=== PATIENT | male | born 1955 | race Caucasian/White ===

== ENCOUNTER 2017-11-14 18:18 | Observation (INO) | payer OTHER ==
[~2017-11-14] VITALS: Ht 177.8 cm; Wt 103.9 kg
[~2017-11-14 18:18] MED LIST: AMLO5; AMLO5 PO; ATOR20 PO; BENZ100A PO; BUPR150ER; Budeprion Xl300 MG PO; COQ1050 MG PO; Cyclobenzaprine5 MG PO; DOXA4; FAMO20 PO; IBUP800; LISI20 PO; LOSARTAN POTASS50 MG PO; MELO7.5 PO; Mobic15 MG PO; NUVIGIL250 MG PO; OMEP20ER; OMEPRAZOLE MAGN20 MG; OMEPRAZOLE MAGN20 MG PO; PANT40; Pepcid20 MG PO; Prevacid Soluta30 MG PO; SILDENAFIL20 MG PO; TADA10TA PO
[2017-11-14 19:14] LABS: BASOPHILS ABSOLUTE AUTO 0.03 K/mm3 (0.00-0.23); BASOPHILS PERCENT AUTO 0 % (0-2); EOSINOPHILS ABSOLUTE AUTO 0.24 K/mm3 (0.00-0.68); EOSINOPHILS PERCENT AUTO 3 % (0-6); Hematocrit 41.6 % (37.0-53.0); Hemoglobin 13.8 g/dL (13.5-17.5); IMMATURE GRAN ABSOLUTE AUTO 0.03 K/mm3 (0.00-0.10); IMMATURE GRAN PERCENT AUTO 0 % (0-1); LYMPHOCYTES ABSOLUTE AUTO 4.03 K/mm3 (0.84-5.20); LYMPHOCYTES PERCENT AUTO 44 % (21-46); MONOCYTES ABSOLUTE AUTO 0.76 K/mm3 (0.16-1.47); MONOCYTES PERCENT AUTO 8 % (4-13); Mean Corpuscular HGB 30.8 pg (26.0-34.0); Mean Corpuscular HGB Conc 33.2 g/dL (31.5-36.5); Mean Corpuscular Volume 93 fL (80-100); Mean Platelet Volume 9.5 fL (9.1-12.4); NEUTROPHILS ABSOLUTE AUTO 4.02 K/mm3 (1.96-9.15); NEUTROPHILS PERCENT AUTO 44 % (41-73); Platelet Count 319 K/mm3 (150-400); RDW Coefficient Variation 12.3 % (11.7-14.2); RDW Standard Deviation 41.9 fL (35.1-46.3); Red Blood Cell Count 4.48 M/mm3 (4.30-5.90); White Blood Cell Count 9.11 K/mm3 (4.00-11.30)
[2017-11-14 19:30] LABS: Alanine Aminotransfer (ALT/SGP 43 U/L (12-78); Albumin, Blood 3.9 g/dL (3.4-5.0); Albumin/Globulin Ratio 1.3 (0.8-1.8); Alk Phos 81 U/L (50-136); Anion Gap 10 mmol/L (6-16); Aspartate Aminotrans (AST/SGOT 34 U/L (12-37); Bilirubin, Total 0.3 mg/dL (0.1-1.0); Blood Urea Nitrogen 16 mg/dL (8-24); Bun/Creatinine Ratio 14.5 (12.0-20.0); CO2, Blood 25 mmol/L (21-32); Calcium, Blood 8.5 mg/dL (8.5-10.1); Chloride, Blood 103 mmol/L (98-108); Globulin, Blood 3.1 g/dL (2.2-4.0); Glomerular Filtration Rate >60 (60-); Glucose, Blood 88 mg/dL (70-99); Potassium, Blood 3.4 mmol/L (3.5-5.5); Sodium, Blood 138 mmol/L (136-145); Troponin I <0.015 ng/mL (0.000-0.040)
[2017-11-14] MEDS ORDERED: UBID10 PO (22:06)
[2017-11-14] MEDS ORDERED: FAMO20 PO (22:06)
[2017-11-14] MEDS ORDERED: VOL-CARE RX TA1 EACH PO (22:07)
[2017-11-15 04:42] LABS: BASOPHILS ABSOLUTE AUTO 0.03 K/mm3 (0.00-0.23); BASOPHILS PERCENT AUTO 0 % (0-2); EOSINOPHILS ABSOLUTE AUTO 0.32 K/mm3 (0.00-0.68); EOSINOPHILS PERCENT AUTO 4 % (0-6); Hematocrit 40.6 % (37.0-53.0); Hemoglobin 13.7 g/dL (13.5-17.5); IMMATURE GRAN ABSOLUTE AUTO 0.05 K/mm3 (0.00-0.10); IMMATURE GRAN PERCENT AUTO 1 % (0-1); LYMPHOCYTES ABSOLUTE AUTO 3.48 K/mm3 (0.84-5.20); LYMPHOCYTES PERCENT AUTO 42 % (21-46); MONOCYTES ABSOLUTE AUTO 0.89 K/mm3 (0.16-1.47); MONOCYTES PERCENT AUTO 11 % (4-13); Mean Corpuscular HGB 31.4 pg (26.0-34.0); Mean Corpuscular HGB Conc 33.7 g/dL (31.5-36.5); Mean Corpuscular Volume 93 fL (80-100); Mean Platelet Volume 9.8 fL (9.1-12.4); NEUTROPHILS ABSOLUTE AUTO 3.44 K/mm3 (1.96-9.15); NEUTROPHILS PERCENT AUTO 42 % (41-73); Platelet Count 281 K/mm3 (150-400); RDW Coefficient Variation 12.4 % (11.7-14.2); RDW Standard Deviation 42.5 fL (35.1-46.3); Red Blood Cell Count 4.37 M/mm3 (4.30-5.90); White Blood Cell Count 8.21 K/mm3 (4.00-11.30)
[2017-11-15 05:05] LABS: Alanine Aminotransfer (ALT/SGP 40 U/L (12-78); Albumin, Blood 3.3 g/dL (3.4-5.0); Albumin/Globulin Ratio 1.1 (0.8-1.8); Alk Phos 78 U/L (50-136); Anion Gap 8 mmol/L (6-16); Aspartate Aminotrans (AST/SGOT 24 U/L (12-37); Bilirubin, Total 0.4 mg/dL (0.1-1.0); Blood Urea Nitrogen 18 mg/dL (8-24); Bun/Creatinine Ratio 18.4 (12.0-20.0); CO2, Blood 27 mmol/L (21-32); Calcium, Blood 8.4 mg/dL (8.5-10.1); Chloride, Blood 107 mmol/L (98-108); Creatinine, Blood 0.98 mg/dL (0.60-1.20); Globulin, Blood 3.1 g/dL (2.2-4.0); Glomerular Filtration Rate >60 (60-); Glucose, Blood 101 mg/dL (70-99); Potassium, Blood 3.5 mmol/L (3.5-5.5); Sodium, Blood 142 mmol/L (136-145); Total Protein, Blood 6.4 g/dL (6.4-8.2); Troponin I <0.015 ng/mL (0.000-0.040)
[2017-11-16] MEDS ORDERED: GABA600 PO (11:11)
[2017-11-16] MEDS ORDERED: METO50ER PO (11:11)
[2017-11-16] MEDS ORDERED: XARELTO20 MG PO (11:13)
[2017-11-17] MEDS ORDERED: Ativan1 MG PO (23:12)
[2018-02-18] MEDS ORDERED: Verotin-Gr Cap1 EACH PO (13:57)
[2018-02-18] MEDS ORDERED: UBID100 PO (13:57)
[2018-02-18] MEDS ORDERED: Amiodarone HCl200 MG PO (13:58)
[2018-02-18] MEDS ORDERED: WARF5 PO (13:58)
[2018-03-30] MEDS ORDERED: CLOM50A PO (13:52)
[2018-03-30] MEDS ORDERED: SILDENAFIL20 MG PO (13:54)
[2018-03-30] MEDS ORDERED: CHLO5 PO (13:54)
[2018-03-30] MEDS ORDERED: BENZ100A PO (13:55)
[2018-03-30] MEDS ORDERED: TOPI25 PO (13:55)
== END 2017-11-16 12:04 | disposition home or self-care (01) ==
LOC: ER 18:18 → PCU 21:34
PROVIDERS: Emergency Medicine; Internal Medicine
DX: I48.91 Unspecified atrial fibrillation (principal); J44.9 Chronic obstructive pulmonary disease, unspecified; I10 Essential (primary) hypertension; K21.9 Gastro-esophageal reflux disease without esophagitis; F32.9 Major depressive disorder, single episode, unspecified; F17.200 Nicotine dependence, unspecified, uncomplicated; G47.33 Obstructive sleep apnea (adult) (pediatric); E78.00 Pure hypercholesterolemia, unspecified; R07.9 Chest pain, unspecified; F10.10 Alcohol abuse, uncomplicated; Z88.0 Allergy status to penicillin; Z79.1 Long term (current) use of non-steroidal anti-inflammatories (NSAID); Z79.899 Other long term (current) drug therapy; Z87.442 Personal history of urinary calculi; Z90.49 Acquired absence of other specified parts of digestive tract; Z96.0 Presence of urogenital implants; Z98.890 Other specified postprocedural states
CPT/HCPCS: 36415; 71046; 80053; 83880; 84443; 84484; 85025; 93005; 93010; 93306; 96372; 96374; 96376; 99285; G0378; J1650

== ENCOUNTER 2017-11-17 20:46 | Emergency (ER) | payer OTHER ==
[~2017-11-17] VITALS: Ht 172.7 cm; Wt 99.8 kg
[~2017-11-17 20:46] MED LIST changes: +GABA600 PO; +METO50ER PO; +UBID10 PO; +VOL-CARE RX TA1 EACH PO; +XARELTO20 MG PO
[2017-11-17 21:40] LABS: BASOPHILS ABSOLUTE AUTO 0.04 K/mm3 (0.00-0.23); BASOPHILS PERCENT AUTO 1 % (0-2); EOSINOPHILS ABSOLUTE AUTO 0.21 K/mm3 (0.00-0.68); EOSINOPHILS PERCENT AUTO 3 % (0-6); Hematocrit 41.2 % (37.0-53.0); Hemoglobin 14.1 g/dL (13.5-17.5); IMMATURE GRAN ABSOLUTE AUTO 0.04 K/mm3 (0.00-0.10); IMMATURE GRAN PERCENT AUTO 1 % (0-1); LYMPHOCYTES ABSOLUTE AUTO 2.81 K/mm3 (0.84-5.20); LYMPHOCYTES PERCENT AUTO 33 % (21-46); MONOCYTES ABSOLUTE AUTO 0.77 K/mm3 (0.16-1.47); MONOCYTES PERCENT AUTO 9 % (4-13); Mean Corpuscular HGB 31.2 pg (26.0-34.0); Mean Corpuscular HGB Conc 34.2 g/dL (31.5-36.5); Mean Corpuscular Volume 91 fL (80-100); Mean Platelet Volume 9.6 fL (9.1-12.4); NEUTROPHILS ABSOLUTE AUTO 4.57 K/mm3 (1.96-9.15); NEUTROPHILS PERCENT AUTO 54 % (41-73); Platelet Count 293 K/mm3 (150-400); RDW Coefficient Variation 12.1 % (11.7-14.2); RDW Standard Deviation 40.2 fL (35.1-46.3); Red Blood Cell Count 4.52 M/mm3 (4.30-5.90); White Blood Cell Count 8.44 K/mm3 (4.00-11.30)
[2017-11-17 22:05] LABS: Alanine Aminotransfer (ALT/SGP 65 U/L (12-78); Albumin/Globulin Ratio 1.1 (0.8-1.8); Alk Phos 78 U/L (50-136); Anion Gap 11 mmol/L (6-16); Aspartate Aminotrans (AST/SGOT 32 U/L (12-37); Bilirubin, Total 0.4 mg/dL (0.1-1.0); Blood Urea Nitrogen 15 mg/dL (8-24); Bun/Creatinine Ratio 16.4 (12.0-20.0); CO2, Blood 26 mmol/L (21-32); Calcium, Blood 8.9 mg/dL (8.5-10.1); Chloride, Blood 104 mmol/L (98-108); Creatinine, Blood 0.91 mg/dL (0.60-1.20); Globulin, Blood 3.6 g/dL (2.2-4.0); Glomerular Filtration Rate >60 (60-); Glucose, Blood 83 mg/dL (70-99); Potassium, Blood 3.9 mmol/L (3.5-5.5); Sodium, Blood 141 mmol/L (136-145); Total Protein, Blood 7.6 g/dL (6.4-8.2); Troponin I <0.015 ng/mL (0.000-0.040)
[2017-11-17 22:16] LABS: Source, Urine Clean Catch
[2017-11-17 22:18] LABS: Bilirubin, Urine Neg (Neg); Blood, Urine Neg (Neg); Glucose Qualitative, Urine Neg (Neg); Ketones, Urine Neg (Neg); Leukocyte Esterase, Urine Neg (Neg); Nitrite, Urine Neg (Neg); Protein, Urine Neg (Neg); Urobilinogen, Urine NORM (Normal); pH, Urine 6.5 (5.0-8.0)
[2017-11-17 22:29] LABS: Appearance, Urine Clear (Clear); Color, Urine Pale Yellow (P-Yellow)
[2017-11-17] MEDS ORDERED: Ativan1 MG PO (23:12)
[2018-02-18] MEDS ORDERED: UBID100 PO (13:57)
[2018-02-18] MEDS ORDERED: Verotin-Gr Cap1 EACH PO (13:57)
[2018-02-18] MEDS ORDERED: Amiodarone HCl200 MG PO (13:58)
[2018-02-18] MEDS ORDERED: WARF5 PO (13:58)
[2018-03-30] MEDS ORDERED: CLOM50A PO (13:52)
[2018-03-30] MEDS ORDERED: SILDENAFIL20 MG PO (13:54)
[2018-03-30] MEDS ORDERED: CHLO5 PO (13:54)
[2018-03-30] MEDS ORDERED: TOPI25 PO (13:55)
[2018-03-30] MEDS ORDERED: BENZ100A PO (13:55)
== END 2017-11-17 23:18 | disposition home or self-care (01) ==
LOC: ER 20:46
PROVIDERS: Emergency Medicine
DX: F10.239 Alcohol dependence with withdrawal, unspecified (principal); F41.9 Anxiety disorder, unspecified; I48.91 Unspecified atrial fibrillation; Z88.0 Allergy status to penicillin; Z79.899 Other long term (current) drug therapy; Z87.891 Personal history of nicotine dependence
CPT/HCPCS: 36415; 71046; 80053; 81003; 84484; 85025; 93005; 93010; 96374; 99284; J2060

== ENCOUNTER 2018-01-02 06:03 | Day surgery (SDC) | payer OTHER ==
[~2018-01-02] VITALS: Ht 172.7 cm; Wt 100.0 kg
[~2018-01-02 06:03] MED LIST changes: +Ativan1 MG PO
[2018-01-02] MEDS ORDERED: Flonase 0.05% N16 GM (06:45)
== END 2018-01-02 23:13 | disposition home or self-care (01) ==
LOC: MHTC 06:03
PROC: 5A2204Z Restoration of Cardiac Rhythm, Single (ICD-10-PCS; principal; 2018-01-02)
DX: I48.1 Persistent atrial fibrillation (principal); J44.9 Chronic obstructive pulmonary disease, unspecified; I10 Essential (primary) hypertension; G47.33 Obstructive sleep apnea (adult) (pediatric); E78.5 Hyperlipidemia, unspecified; F32.9 Major depressive disorder, single episode, unspecified; F17.210 Nicotine dependence, cigarettes, uncomplicated; E66.9 Obesity, unspecified
CPT/HCPCS: 92960; 93005; 93010; 99152; J2250; J3010; J7030

== ENCOUNTER 2018-02-23 06:07 | Day surgery (SDC) | payer OTHER, SELFPAY ==
[~2018-02-23] VITALS: Ht 172.7 cm; Wt 93.0 kg
[~2018-02-23 06:07] MED LIST changes: +Amiodarone HCl200 MG PO; +Flonase 0.05% N16 GM; +UBID100 PO; +Verotin-Gr Cap1 EACH PO; +WARF5 PO
== END 2018-02-23 22:40 | disposition home or self-care (01) ==
LOC: MHTC 06:07
PROC: 5A2204Z Restoration of Cardiac Rhythm, Single (ICD-10-PCS; principal; 2018-02-23)
DX: I48.1 Persistent atrial fibrillation (principal); E66.9 Obesity, unspecified; G47.33 Obstructive sleep apnea (adult) (pediatric); I10 Essential (primary) hypertension; E78.5 Hyperlipidemia, unspecified; F17.210 Nicotine dependence, cigarettes, uncomplicated; Z79.01 Long term (current) use of anticoagulants
CPT/HCPCS: 92960; 93005; 93010; 99152; J2250; J3010; J7030

== ENCOUNTER 2018-03-01 09:00 | Emergency (ER) | payer OTHER, SELFPAY | END 2018-03-01 09:10 | disposition left against medical advice (07) | LOC: ER 09:00 | DX: Z53.21 Procedure and treatment not carried out due to patient leaving prior to being seen by health care provider (principal) | CPT/HCPCS: 99281 ==

== ENCOUNTER 2018-03-16 15:10 | Emergency (ER) | payer OTHER, SELFPAY ==
[~2018-03-16] VITALS: Ht 172.7 cm; Wt 95.2 kg
[2018-03-16] MEDS ORDERED: XARELTO20 MG PO (15:50)
[2018-03-16] MEDS ORDERED: Milk Thistle175 MG PO (15:51)
[2018-03-16] MEDS ORDERED: B-Complex With1 EACH PO (15:51)
== END 2018-03-16 16:46 | disposition home or self-care (01) ==
LOC: ER 15:10
DX: S09.90XA Unspecified injury of head, initial encounter (principal); S30.0XXA Contusion of lower back and pelvis, initial encounter; I48.91 Unspecified atrial fibrillation; Z88.0 Allergy status to penicillin; Z88.8 Allergy status to other drugs, medicaments and biological substances; Z79.899 Other long term (current) drug therapy; Z79.01 Long term (current) use of anticoagulants; Z87.891 Personal history of nicotine dependence; W11.XXXA Fall on and from ladder, initial encounter
CPT/HCPCS: 70450; 72100; 72125; 99284

== ENCOUNTER 2018-03-31 06:22 | Day surgery (SDC) | payer OTHER, SELFPAY ==
[~2018-03-31] VITALS: Ht 167.6 cm; Wt 94.3 kg
[~2018-03-31 06:22] MED LIST changes: +B-Complex With1 EACH PO; +CHLO5 PO; +CLOM50A PO; +Milk Thistle175 MG PO; +TOPI25 PO
[2018-03-31] MEDS ORDERED: ELIQUIS5 MG PO (06:55)
== END 2018-03-31 22:51 | disposition home or self-care (01) ==
LOC: MHTC 06:22
PROC: 5A2204Z Restoration of Cardiac Rhythm, Single (ICD-10-PCS; principal; 2018-03-31)
DX: I48.1 Persistent atrial fibrillation (principal); J44.9 Chronic obstructive pulmonary disease, unspecified; I11.9 Hypertensive heart disease without heart failure; G47.33 Obstructive sleep apnea (adult) (pediatric); E78.5 Hyperlipidemia, unspecified; F32.9 Major depressive disorder, single episode, unspecified; F17.210 Nicotine dependence, cigarettes, uncomplicated; E66.9 Obesity, unspecified; Z68.33 Body mass index [BMI] 33.0-33.9, adult; Z79.01 Long term (current) use of anticoagulants; Z79.899 Other long term (current) drug therapy; Z88.0 Allergy status to penicillin; Z88.8 Allergy status to other drugs, medicaments and biological substances
CPT/HCPCS: 92960; 93005; 93010; 99152; J2250; J3010; J7040

== ENCOUNTER 2020-08-03 08:11 | Day surgery (SDC) | payer BC ==
[~2020-08-03] VITALS: Ht 172.7 cm; Wt 92.4 kg
[~2020-08-03 08:11] MED LIST changes: +CELE400 PO; +ELIQUIS5 MG PO; +GABA300 PO; +LOSA50 PO; +OXYM.05NI
--- NOTE | 2020-08-03 08:56 | NUR ---
Ambulatory in Day Surgery History, Chart, Medications and Allergies reviewed before start of procedure. Lungs clear T/O to Auscultation. Patient confirms NPO status and agrees with scheduled surgery. Patient States Post-Procedure ride home has been arranged.
--- NOTE | 2020-08-03 09:02 | NUR ---
08/03/20 0902 Holley Whitehead History, Chart, Medications and Allergies reviewed before start of procedure.Patient confirms NPO status and agrees with scheduled surgery.3-LEAD EKG REVIEWED WITH PHYSICIAN PRIOR TO START OF PROCEDURE.MONITOR INTACT WITH CONTINUOUS PULSE OXIMETRY AND INTERMITTENT BP.O2 VIA N/C INTACT THROUGHOUT SEDATION/PROCEDURE.
== END 2020-08-03 23:10 | disposition home or self-care (01) ==
LOC: ORSCMMR 08:11 → ORD 09:00 → ORSCMMR 09:00
PROVIDERS: Internal Medicine Gastroenterology
PROC: 0DB48ZZ Excision of Esophagogastric Junction, Via Natural or Artificial Opening Endoscopic (ICD-10-PCS; principal; 2020-08-03 09:00)
PROC: 0DB68ZX Excision of Stomach, Via Natural or Artificial Opening Endoscopic, Diagnostic (ICD-10-PCS; principal; 2020-08-03 09:00)
PROC: 0DBK8ZX Excision of Ascending Colon, Via Natural or Artificial Opening Endoscopic, Diagnostic (ICD-10-PCS; principal; 2020-08-03 09:00)
PROC: 0DBM8ZX Excision of Descending Colon, Via Natural or Artificial Opening Endoscopic, Diagnostic (ICD-10-PCS; principal; 2020-08-03 09:00)
PROC: 0DBN8ZX Excision of Sigmoid Colon, Via Natural or Artificial Opening Endoscopic, Diagnostic (ICD-10-PCS; principal; 2020-08-03 09:00)
DX: K21.9 Gastro-esophageal reflux disease without esophagitis (principal); D12.2 Benign neoplasm of ascending colon; D12.4 Benign neoplasm of descending colon; D12.5 Benign neoplasm of sigmoid colon; Z12.11 Encounter for screening for malignant neoplasm of colon; Z86.010 Personal history of colon polyps; G47.33 Obstructive sleep apnea (adult) (pediatric); I48.0 Paroxysmal atrial fibrillation; I10 Essential (primary) hypertension; E78.00 Pure hypercholesterolemia, unspecified; Z79.01 Long term (current) use of anticoagulants; Z79.899 Other long term (current) drug therapy; F17.210 Nicotine dependence, cigarettes, uncomplicated
CPT/HCPCS: 88305; 88342; J2250; J3010; J7120

== ENCOUNTER → 2020-11-09 | Outpatient (CLI) | payer SELFPAY | END | disposition home or self-care (01) | LOC: LAB 12:48 → LAB SHORT 12:48 | DX: C44.629 Squamous cell carcinoma of skin of left upper limb, including shoulder (principal) | CPT/HCPCS: 88305 ==

== ENCOUNTER → 2020-12-27 | Outpatient (CLI) | payer SELFPAY | END | disposition home or self-care (01) | LOC: LAB SHORT 14:23 | DX: C44.629 Squamous cell carcinoma of skin of left upper limb, including shoulder (principal) | CPT/HCPCS: 88305 ==

== ENCOUNTER → 2021-07-09 | Outpatient (CLI) | payer MEDICARE | LOC: LAB SHORT 11:22 → LAB 11:22 | DX: D48.5 Neoplasm of uncertain behavior of skin (principal); C44.519 Basal cell carcinoma of skin of other part of trunk | CPT/HCPCS: 88305 ==

== ENCOUNTER 2021-08-29 11:24 | Emergency (ER) | payer MEDICARE ==
[~2021-08-29] VITALS: Ht 170.2 cm; Wt 90.7 kg
[2021-08-29 13:07] LABS: Alanine Aminotransfer (ALT/SGP 49 U/L (12-78); Albumin, Blood 4.2 g/dL (3.4-5.0); Albumin/Globulin Ratio 1.2 (0.8-1.8); Alk Phos 81 U/L (50-136); Anion Gap 6 mmol/L (6-16); Aspartate Aminotrans (AST/SGOT 43 U/L (12-37); Bilirubin, Total 0.5 mg/dL (0.1-1.0); Blood Urea Nitrogen 22 mg/dL (8-24); Bun/Creatinine Ratio 19.1 (12.0-20.0); CO2, Blood 27 mmol/L (21-32); Calcium, Blood 9.2 mg/dL (8.5-10.1); Chloride, Blood 106 mmol/L (98-108); Creatinine, Blood 1.15 mg/dL (0.60-1.20); Globulin, Blood 3.5 g/dL (2.2-4.0); Glomerular Filtration Rate >60 (60-); Glucose, Blood 101 mg/dL (70-99); Sodium, Blood 139 mmol/L (136-145); Total Protein, Blood 7.7 g/dL (6.4-8.2)
[2021-08-29 13:44] LABS: BASOPHILS ABSOLUTE AUTO 0.09 K/mm3 (0.00-0.23); BASOPHILS PERCENT AUTO 1 % (0-2); EOSINOPHILS ABSOLUTE AUTO 0.19 K/mm3 (0.00-0.68); EOSINOPHILS PERCENT AUTO 2 % (0-6); Hematocrit 47.6 % (37.0-53.0); Hemoglobin 15.7 g/dL (13.5-17.5); IMMATURE GRAN ABSOLUTE AUTO 0.19 K/mm3 (0.00-0.10); IMMATURE GRAN PERCENT AUTO 2 % (0-1); LYMPHOCYTES ABSOLUTE AUTO 1.77 K/mm3 (0.84-5.20); LYMPHOCYTES PERCENT AUTO 16 % (21-46); MONOCYTES PERCENT AUTO 6 % (4-13); Mean Corpuscular HGB 32.3 pg (26.0-34.0); Mean Corpuscular Volume 98 fL (80-100); Mean Platelet Volume 10.1 fL (9.1-12.4); NEUTROPHILS ABSOLUTE AUTO 7.98 K/mm3 (1.96-9.15); NEUTROPHILS PERCENT AUTO 74 % (41-73); NRBC ABSOLUTE 0.02 K/mm3 (0.00-0.02); NRBC Auto 0.2 /100 WBC (0.0-0.2); Platelet Count 281 K/mm3 (150-400); RDW Coefficient Variation 12.4 % (11.7-14.2); RDW Standard Deviation 44.9 fL (35.1-46.3); Red Blood Cell Count 4.86 M/mm3 (4.30-5.90); White Blood Cell Count 10.82 K/mm3 (4.00-11.30)
[2021-08-29 15:03] LABS: Influenza A, PCR NEGATIVE (NEGATIVE); Influenza B, PCR NEGATIVE (NEGATIVE); Resp Syncytial Virus, PCR NEGATIVE (NEGATIVE); SARS-Cov-2 (COVID-19) PCR, MMC NEGATIVE (NEGATIVE)
== END 2021-08-29 14:45 | disposition short-term general hospital (02) ==
LOC: ER 11:24
PROVIDERS: Emergency Medicine
DX: I60.9 Nontraumatic subarachnoid hemorrhage, unspecified (principal); G91.9 Hydrocephalus, unspecified; J44.9 Chronic obstructive pulmonary disease, unspecified; K21.9 Gastro-esophageal reflux disease without esophagitis; I48.91 Unspecified atrial fibrillation; E78.00 Pure hypercholesterolemia, unspecified; Z79.01 Long term (current) use of anticoagulants; Z88.0 Allergy status to penicillin; Z88.8 Allergy status to other drugs, medicaments and biological substances; Z79.899 Other long term (current) drug therapy
CPT/HCPCS: 0241U; 70450; 80053; 85025; 93005; 93010; 96365; 96375; 99285-25; A9270; J1170; J2405; J7168

== ENCOUNTER → 2022-07-01 | Outpatient (CLI) | payer MEDICARE, OTHER | END | disposition home or self-care (01) | LOC: PLD 15:01 → LAB SHORT 15:01 | DX: C44.612 Basal cell carcinoma of skin of right upper limb, including shoulder (principal); C44.519 Basal cell carcinoma of skin of other part of trunk | CPT/HCPCS: 88305 ==

== ENCOUNTER → 2022-11-18 | Outpatient (CLI) | payer OTHER | END | disposition home or self-care (01) | LOC: PLD 14:46 → LAB SHORT 14:46 | DX: D48.5 Neoplasm of uncertain behavior of skin (principal); C44.719 Basal cell carcinoma of skin of left lower limb, including hip; C44.519 Basal cell carcinoma of skin of other part of trunk; L72.9 Follicular cyst of the skin and subcutaneous tissue, unspecified | CPT/HCPCS: 88304; 88305 ==

== ENCOUNTER 2022-12-28 14:37 | Emergency (ER) | payer OTHER ==
[~2022-12-28] VITALS: Ht 160 cm; Wt 90.7 kg
[2022-12-28] MEDS ORDERED: PAXLOVID 150-11 EACH PO ×2 (14:51→15:12)
== END 2022-12-28 14:51 | disposition home or self-care (01) ==
LOC: ER 14:37
DX: U07.1 COVID-19 (principal); J44.9 Chronic obstructive pulmonary disease, unspecified; I48.91 Unspecified atrial fibrillation; E78.00 Pure hypercholesterolemia, unspecified; K21.9 Gastro-esophageal reflux disease without esophagitis; Z88.8 Allergy status to other drugs, medicaments and biological substances; Z88.0 Allergy status to penicillin; Z79.899 Other long term (current) drug therapy; Z79.01 Long term (current) use of anticoagulants; Z87.891 Personal history of nicotine dependence
CPT/HCPCS: 99283

== ENCOUNTER → 2023-01-01 | Outpatient (CLI) | payer OTHER ==
[~2023-01-01] MED LIST changes: +PAXLOVID 150-11 EACH PO
== END | disposition home or self-care (01) ==
LOC: PLD 11:55 → LAB SHORT 11:55 → LAB 11:55
DX: D48.5 Neoplasm of uncertain behavior of skin (principal)
CPT/HCPCS: 88305

== ENCOUNTER → 2023-03-19 | Outpatient (CLI) | payer OTHER | END | disposition home or self-care (01) | LOC: LAB SHORT 11:47 → PLD 11:47 | DX: D48.5 Neoplasm of uncertain behavior of skin (principal) | CPT/HCPCS: 88305 ==

== ENCOUNTER 2023-05-13 12:31 | Inpatient (IN) | payer OTHER ==
[~2023-05-13] VITALS: Ht 167.6 cm; Wt 98.1 kg
[2023-05-13 12:59] LABS: BASOPHILS ABSOLUTE AUTO 0.03 K/mm3 (0.00-0.23); BASOPHILS PERCENT AUTO 0 % (0-2); EOSINOPHILS ABSOLUTE AUTO 0.02 K/mm3 (0.00-0.68); EOSINOPHILS PERCENT AUTO 0 % (0-6); Hematocrit 49.5 % (37.0-53.0); Hemoglobin 16.3 g/dL (13.5-17.5); IMMATURE GRAN ABSOLUTE AUTO 0.07 K/mm3 (0.00-0.10); IMMATURE GRAN PERCENT AUTO 1 % (0-1); LYMPHOCYTES ABSOLUTE AUTO 1.37 K/mm3 (0.84-5.20); LYMPHOCYTES PERCENT AUTO 13 % (21-46); MONOCYTES ABSOLUTE AUTO 0.23 K/mm3 (0.16-1.47); MONOCYTES PERCENT AUTO 2 % (4-13); Mean Corpuscular HGB Conc 32.9 g/dL (31.5-36.5); Mean Corpuscular Volume 88 fL (80-100); Mean Platelet Volume 9.8 fL (9.1-12.4); NEUTROPHILS ABSOLUTE AUTO 9.28 K/mm3 (1.96-9.15); NEUTROPHILS PERCENT AUTO 84 % (41-73); Platelet Count 313 K/mm3 (150-400); RDW Coefficient Variation 15.5 % (11.7-14.2); RDW Standard Deviation 49.3 fL (35.1-46.3); Red Blood Cell Count 5.63 M/mm3 (4.30-5.90)
[2023-05-13] MEDS ORDERED: BUPROPION XL150 M1 PO (13:09)
[2023-05-13] MEDS ORDERED: ARMONAIR DIGIH55 MCG IH (13:10)
[2023-05-13] MEDS ORDERED: PREG75 PO (13:10)
[2023-05-13] MEDS ORDERED: TESTOSTERONE200 MG (13:11)
[2023-05-13] MEDS ORDERED: TADA10TA (13:11)
[2023-05-13] MEDS ORDERED: TRAM50 PO (13:11)
[2023-05-13] MEDS ORDERED: Vitamin D1000 UNI1 PO (13:11)
[2023-05-13] MEDS ORDERED: [UNRECOGNIZED DRUG - CODE] SL (13:12)
[2023-05-13] MEDS ORDERED: B-COMPLEX1 EACH PO (13:12)
[2023-05-13] MEDS ORDERED: ALPR.25 PO (13:12)
[2023-05-13] MEDS ORDERED: FISH OIL 1,2001 EAC7 PO (13:12)
[2023-05-13] MEDS ORDERED: Milk Thistle175 M1 PO (13:12)
[2023-05-13] MEDS ORDERED: MELA3 PO (13:13)
[2023-05-13] MEDS ORDERED: BUSPIRONE HCL10 M1 PO (13:13)
[2023-05-13] MEDS ORDERED: Flonase 0.05% N16 GM (13:13)
[2023-05-13 13:33] LABS: Albumin, Blood 3.9 g/dL (3.4-5.0); Albumin/Globulin Ratio 1.2 (0.8-1.8); Bilirubin, Total 0.4 mg/dL (0.1-1.0); Calcium, Blood 8.7 mg/dL (8.5-10.1); Creatinine, Blood 1.04 mg/dL (0.60-1.20); Globulin, Blood 3.2 g/dL (2.2-4.0); Potassium, Blood 4.7 mmol/L (3.5-5.5); Total Protein, Blood 7.1 g/dL (6.4-8.2)
[2023-05-13 16:45] VITALS: BP 127/75
--- NOTE | 2023-05-13 18:16 | NUR ---
PT SUMMARY: PT ARRIVED IN THE UNIT FROM [facility] AT 1645 PT ABLE TO STAND TRANFER TO PCU BED, PT IS HERE FOR AFIB, PT ON CARDIZEM GTT AT 10MG/HR HRR 110-120'S, SBP 120'S, SATS ABOVE 95% ON RA, AFEBRILE. PT DENIES ANY CHEST PAIN/PRESSURE, NO NAUSEA DIZZINESS OR DISCOMFORT, PT HAS BEEN PLEASANT AND COOEPRATIVE WITH CARES. PT WAS EDUCATED ABOUT IGNITION RISK, FIRE SAFETY, PT CLAIMS HE DIDNT HAVE ANY IGNITION SOURCES ON HIS BELONGINGS. PT TOLERATED DINNER, NO OTHER ISSUES AT THIS TIME CALL LIGHTS IN REACH WILL REPORT TO ONCOMING SHIFT
[2023-05-13 20:43] VITALS: BP 108/66
[2023-05-13 20:51] LABS: Influenza A, PCR NEGATIVE (NEGATIVE); Influenza B, PCR NEGATIVE (NEGATIVE); Resp Syncytial Virus, PCR NEGATIVE (NEGATIVE); SARS-Cov-2 (COVID-19) PCR, MMC NEGATIVE (NEGATIVE)
[2023-05-13 21:00] VITALS: BP 122/64
[2023-05-13 22:00] VITALS: BP 97/68
[2023-05-13 23:12] VITALS: BP 102/73
[2023-05-14] VITALS (12 sets, daily range): BP systolic 116–155; BP diastolic 46–98
--- NOTE | 2023-05-14 05:02 | NUR ---
SHIFT SUMMARY: Diltiazem drip titrated down to 5. HR in the 70s-90s, Afib rhyhtm. BP stable. On room air, but pt has a cough, dyspnea with exertion and rhonchi in all lung bases. Breathing treatments administered by RT.
--- NOTE | 2023-05-14 09:32 | NUR ---
PT A&OX4, PLEASANT AND COOPERATIVE WITH CARE. PT DENIES CHEST PAIN/PRESSURE. SOB W/EXERTION. HR 80'S-110'S, A-FIB WITH BBB PER REMI OLVERA. PT ATE ALL OF BREAKFAST. PT UP IN CHAIR WATCHING TV, CALL LIGHT WITHIN REACH.
[2023-05-14 10:19] LABS: Adenovirus Not Detected (NOT DETECT); Bordetella pertussis Not Detected (NOT DETECT); Chlamydophila pneumoniae Not Detected (NOT DETECT); Coronavirus 229E Not Detected (NOT DETECT); Coronavirus HKU1 Not Detected (NOT DETECT); Coronavirus NL63 Not Detected (NOT DETECT); Coronavirus OC43 Not Detected (NOT DETECT); Human Metapneumovirus Not Detected (NOT DETECT); Human Rhinovirus/Enterovirus Detected (NOT DETECT); Influenza A/2009-H1 Not Detected (NOT DETECT); Influenza A/H1 Not Detected (NOT DETECT); Influenza A/H3 Not Detected (NOT DETECT); Influenza B Not Detected (NOT DETECT); Mycoplasma pneumoniae Not Detected (NOT DETECT); Parainfluenza Virus 1 Not Detected (NOT DETECT); Parainfluenza Virus 2 Not Detected (NOT DETECT); Parainfluenza Virus 3 Not Detected (NOT DETECT); Parainfluenza Virus 4 Not Detected (NOT DETECT); Respiratory Syncytial Virus Not Detected (NOT DETECT); SARS-Cov-2 (COVID-19), BioFire Not Detected (NOT DETECT)
--- NOTE | 2023-05-14 10:52 | NUR ---
+ RHINO VIRUS RESULTS DISCUSSED WITH DR. BLAKELY, CONTINUING ABO PER HIS INSTRUCTION.
--- NOTE | 2023-05-14 17:00 | NUR ---
SHIFT SUMMARY PT OFF CARDIZEM DRIP AND ON PO CARDIZEM PER DR. BRADFORD'S INSTRUCTIONS. HR AFIB W/BBB 80'S-110'S. PT DENIES CHEST PAIN/PRESSURE. SOB W/EXERTION. NO ACUTE CHANGES, SEE PREVIOUS NOTES. PT IN ROOM VISITING WITH HIS . CALL LIGHT WITHIN REACH.
[2023-05-15] VITALS (11 sets, daily range): BP systolic 131–175; BP diastolic 73–125
--- NOTE | 2023-05-15 06:15 | NUR ---
SHIFT SUMMARY A/OX4, SBA FOR TRANSFERS. TELE AFIB 100-120, DENIES CHEST PAIN/PRESSURE. SPO2 >92% ON CPAP. VSS, NO ACUTE CHANGES AT THIS TIME. BED IN LOWEST POSIITON WITH CALL LIGHT IN REACH. WILL CONTINUE TO MONITOR AND REPORT TO ONCOMING RN.
--- NOTE | 2023-05-15 08:58 | NUR ---
PT A&OX4, PLEASANT AND COOPERATIVE WITH CARE. LUNG SOUNDS RHONCHI/COURSE THROUGHOUT, NON PRODUCTIVE COUGH, SOB W/EXERTION. HR AFIB 100'S-120'S, PT DENIES CHEST PAIN/PRESSURE. DR. BRADFORD BY FOR VISIT WITH PT, PLANS TO ADJUST BP MEDICATION. PT RESTING IN BED, CALL LIGHT WITHIN REACH.
--- NOTE | 2023-05-15 10:52 | NUR ---
PT WATCHING TV RESTING IN BED.
--- NOTE | 2023-05-15 17:28 | NUR ---
NO ACUTE CHANGES, SEE PREVIOUS NOTES. PT VISITED WITH HIS THIS AFTERNOON AND IS IN GOOD SPIRITS. PT HAD HEADACHE AND WAS MEDICATED PER MAR, PT STATED PAIN REDUCED WITH MEDICATION. PT UP IN CHAIR EATING DINNER, CALL LIGHT WITHIN REACH.
[2023-05-16] VITALS (7 sets, daily range): BP systolic 108–139; BP diastolic 79–90
--- NOTE | 2023-05-16 05:30 | NUR ---
SHIFT SUMMARY A/OX4, IND IN ROOM. TELE AFIB 90-120, DENIES CHEST PAIN/PRESSURE. SPO2 >92% ON RA. WHEEZES NOTED T/O, NONPRODUCTIVE COUGH. VSS, NO ACUTE CHANGES AT THIS TIME. BED IN LOWEST POSIITON WITH CALL LIGHT IN REACH. WILL CONTINUE TO MONITOR AND REPORT TO ONCOMING RN.
[2023-05-16] MEDS ORDERED: [UNRECOGNIZED DRUG - OTHER] PO (16:56)
[2023-05-16] MEDS ORDERED: DILT120 PO (16:57)
[2023-05-16] MEDS ORDERED: GUAI600T33 PO (16:58)
[2023-05-16] MEDS ORDERED: DILT30 PO (16:58)
[2023-05-16] MEDS ORDERED: LEVOFLOXACIN750 MG PO (16:59)
[2023-05-16] MEDS ORDERED: PRED20 PO (16:59)
--- NOTE | 2023-05-16 17:37 | NUR ---
D/C SUMMARY PT DC'D AT 1727. HIS TOOK HIS BELONGINGS AND IS GOING TO PICK HIM UP IN THE FRONT OF THE HOSPITAL. HIS VS HAVE BEEN STABLE AND HE HAS NO COMPLAINTS. BEFORE D/C, ON TELE HIS HR WAS AFIB 80'S-100'S. NO REPORTS OF ANGINA OR CHEST PRESSURE. IV WAS D/C'D AND THE SITE WAS WRAPPED WITH COBAN AND GAUZE. FAMILY AND PT EDUCATED ON FIRE IGNITION RISK AND SAFETY.
== END 2023-05-16 17:27 | disposition home or self-care (01) | DRG 177 ==
LOC: ER 12:31 → PCU 12:32
PROVIDERS: Emergency Medicine; Nurse Practitioner Acute Care; ADMIT Internal Medicine
DX: J15.8 Pneumonia due to other specified bacteria (principal); J96.01 Acute respiratory failure with hypoxia; J96.02 Acute respiratory failure with hypercapnia; J44.1 Chronic obstructive pulmonary disease with (acute) exacerbation; J44.0 Chronic obstructive pulmonary disease with (acute) lower respiratory infection; E78.5 Hyperlipidemia, unspecified; I48.91 Unspecified atrial fibrillation; I10 Essential (primary) hypertension; G47.33 Obstructive sleep apnea (adult) (pediatric); K21.9 Gastro-esophageal reflux disease without esophagitis; F32.A Depression, unspecified; B97.89 Other viral agents as the cause of diseases classified elsewhere; Z20.822 Contact with and (suspected) exposure to COVID-19; Z88.0 Allergy status to penicillin; Z88.8 Allergy status to other drugs, medicaments and biological substances; Z79.899 Other long term (current) drug therapy; Z79.01 Long term (current) use of anticoagulants; Z79.02 Long term (current) use of antithrombotics/antiplatelets; Z87.19 Personal history of other diseases of the digestive system; Z87.442 Personal history of urinary calculi; Z90.49 Acquired absence of other specified parts of digestive tract; Z98.890 Other specified postprocedural states; Z87.891 Personal history of nicotine dependence
CPT/HCPCS: 0202U; 0241U; 36415; 71045; 80053; 83036; 83880; 84484; 85025; 93005; 93010; 94640; 94660; 94664; 94762; 96365; 96366; 96375; 96376; 99285-25; A9270; C8929; G0378; J2930; Q9957

== ENCOUNTER → 2023-07-08 | Outpatient (CLI) | payer OTHER ==
[~2023-07-08] MED LIST changes: +ALPR.25 PO; +AMIODARONE HCL200 M1 PO; +ARMONAIR DIGIH55 MCG IH; +B-COMPLEX1 EACH PO; +BUPROPION XL150 M1 PO; +BUSPIRONE HCL10 M1 PO; +DEPO-TESTO200 MG/1 M INJ; +DILT120 PO; +DILT30 PO; +FISH OIL 1,2001 EAC7 PO; +GUAI600T33 PO; +LEVOFLOXACIN750 MG PO; +MELA3 PO; +Milk Thistle175 M1 PO; +PRED20 PO; +PREG75 PO; +TESTOSTERONE200 MG; +TRAM50 PO; +Vitamin D1000 UNI1 PO; +WEGOVY1 MG/0.5 M SC; +[UNRECOGNIZED DRUG - CODE] SL; +[UNRECOGNIZED DRUG - OTHER] PO
== END ==
LOC: PLD 14:16 → LAB SHORT 14:16
DX: D48.5 Neoplasm of uncertain behavior of skin (principal)
CPT/HCPCS: 88304

== ENCOUNTER 2023-07-18 13:37 | Day surgery (SDC) | payer OTHER ==
[2023-07-18] VITALS (12 sets, daily range): BP systolic 135–169; BP diastolic 74–91
[~2023-07-18] VITALS: Ht 167.6 cm; Wt 92.7 kg
[~2023-07-18 13:37] MED LIST changes: -AMIODARONE HCL200 M1 PO; -DEPO-TESTO200 MG/1 M INJ; -WEGOVY1 MG/0.5 M SC
[2023-07-18] MEDS ORDERED: WEGOVY1 MG/0.5 M SC (14:43)
[2023-07-18] MEDS ORDERED: DEPO-TESTO200 MG/1 M INJ (14:43)
[2023-07-18] MEDS ORDERED: AMIODARONE HCL200 M1 PO (14:44)
[2023-07-18] MEDS ORDERED: NUVIGIL250 MG PO (14:45)
--- NOTE | 2023-07-18 16:10 | NUR ---
PT AWAKE AND CONVERSING APPROPRIATELY; DENIES PAIN POST PROCEDURE. PT IN SR, VSS.
--- NOTE | 2023-07-18 16:35 | NUR ---
PT AND RECEIVED DISCHARGE INSTRUCTIONS, MED LIST AND AFTER CARE INSTRUCTIONS; VERBALIZED GOOD UNDERSTANDING. PT LEFT FACILITY VIA W/C, CONDITION STABLE.
== END 2023-07-18 23:07 | disposition home or self-care (01) ==
LOC: MHTC 13:37
DX: I48.0 Paroxysmal atrial fibrillation (principal); I10 Essential (primary) hypertension; R94.31 Abnormal electrocardiogram [ECG] [EKG]; J44.9 Chronic obstructive pulmonary disease, unspecified; K21.9 Gastro-esophageal reflux disease without esophagitis; E78.5 Hyperlipidemia, unspecified; I12.9 Hypertensive chronic kidney disease with stage 1 through stage 4 chronic kidney disease, or unspecified chronic kidney disease; N18.2 Chronic kidney disease, stage 2 (mild); Z79.01 Long term (current) use of anticoagulants
CPT/HCPCS: 92960; 93005; 93010; J2704; J7030

== ENCOUNTER → 2023-07-23 | Outpatient (CLI) | payer OTHER ==
[~2023-07-23] MED LIST changes: +AMIODARONE HCL200 M1 PO; +DEPO-TESTO200 MG/1 M INJ; +WEGOVY1 MG/0.5 M SC
== END ==
LOC: LAB SHORT 14:08 → LAB 14:08
DX: H60.391 Other infective otitis externa, right ear (principal)
CPT/HCPCS: 87070; 87205

== ENCOUNTER → 2023-09-08 | Outpatient (CLI) | payer OTHER | END | disposition home or self-care (01) | LOC: LAB 11:52 → LAB SHORT 11:52 | DX: D48.5 Neoplasm of uncertain behavior of skin (principal) | CPT/HCPCS: 88305 ==

== ENCOUNTER → 2024-05-11 | Outpatient (CLI) | payer MEDICARE ==
[2024-05-11 10:11] LABS: BASOPHILS ABSOLUTE AUTO 0.05 K/mm3 (0.00-0.23); BASOPHILS PERCENT AUTO 1 % (0-2); EOSINOPHILS ABSOLUTE AUTO 0.28 K/mm3 (0.00-0.68); EOSINOPHILS PERCENT AUTO 3 % (0-6); Hematocrit 51.9 % (37.0-53.0); Hemoglobin 17.9 g/dL (13.5-17.5); IMMATURE GRAN ABSOLUTE AUTO 0.07 K/mm3 (0.00-0.10); IMMATURE GRAN PERCENT AUTO 1 % (0-1); LYMPHOCYTES ABSOLUTE AUTO 2.11 K/mm3 (0.84-5.20); LYMPHOCYTES PERCENT AUTO 24 % (21-46); MONOCYTES ABSOLUTE AUTO 0.69 K/mm3 (0.16-1.47); MONOCYTES PERCENT AUTO 8 % (4-13); Mean Corpuscular HGB 33.2 pg (26.0-34.0); Mean Corpuscular HGB Conc 34.5 g/dL (31.5-36.5); Mean Corpuscular Volume 96 fL (80-100); Mean Platelet Volume 10.4 fL (9.1-12.4); NEUTROPHILS ABSOLUTE AUTO 5.71 K/mm3 (1.96-9.15); NEUTROPHILS PERCENT AUTO 64 % (41-73); Platelet Count 236 K/mm3 (150-400); RDW Coefficient Variation 13.1 % (11.7-14.2); RDW Standard Deviation 46.4 fL (35.1-46.3); Red Blood Cell Count 5.39 M/mm3 (4.30-5.90); White Blood Cell Count 8.91 K/mm3 (4.00-11.30)
[2024-05-11 10:35] LABS: Alanine Aminotransfer (ALT/SGP 57 U/L (12-78); Albumin, Blood 4.1 g/dL (3.4-5.0); Albumin/Globulin Ratio 1.3 (0.8-1.8); Alk Phos 83 U/L (50-136); Anion Gap 13 mmol/L (3-11); Aspartate Aminotrans (AST/SGOT 31 U/L (12-37); Bilirubin, Total 0.5 mg/dL (0.1-1.0); Blood Urea Nitrogen 25 mg/dL (8-24); Bun/Creatinine Ratio 21.7 (12.0-20.0); CHOL/HDL RATIO 3.6; CO2, Blood 27 mmol/L (21-32); Calcium, Blood 9.4 mg/dL (8.5-10.1); Chloride, Blood 105 mmol/L (98-108); Cholesterol 167 mg/dL (50-200); Creatinine, Blood 1.15 mg/dL (0.60-1.20); Globulin, Blood 3.1 g/dL (2.2-4.0); Glomerular Filtration Rate 69 (60-); Glucose, Blood 100 mg/dL (70-99); HDL Cholesterol 47 mg/dL (>39); LDL/HDL RATIO 1.9; Low Density Lipoprotein Chol 89 mg/dL (0-110); Potassium, Blood 4.6 mmol/L (3.5-5.5); Sodium, Blood 140 mmol/L (136-145); Total Protein, Blood 7.2 g/dL (6.4-8.2); Triglycerides 155 mg/dL (30-160); Very Low Density Lipoprot Chol 31 mg/dL (6-32)
== END ==
LOC: LAB 08:22 → LAB SHORT 08:22
PROVIDERS: Student in an Organized Health Care Education/Training Program
DX: E78.2 Mixed hyperlipidemia (principal); G57.02 Lesion of sciatic nerve, left lower limb; M17.12 Unilateral primary osteoarthritis, left knee; R53.83 Other fatigue; R73.03 Prediabetes
CPT/HCPCS: 36415; 80053; 80061; 83036; 84443; 85025

== ENCOUNTER 2024-11-01 07:04 | Day surgery (SDC) | payer OTHER ==
[~2024-11-01] VITALS: Ht 165.1 cm; Wt 93.2 kg
[2024-11-01] VITALS (15 sets, daily range): BP systolic 105–149; BP diastolic 50–89
[~2024-11-01 07:04] MED LIST changes: +ALPR.5 PO; +ATOR40TA PO; +Acetaminophen 500 MG Tab PO SCH; +CO Q10100 MG PO; +Carvedilol6.25 MG PO; +CeFAZolin Sodium 2,000 MG VIAL ONE; +CeFAZolin Sodium 2,000 MG in NS 100 ML IV SCH; +Chlorhexidine Mouth Care 15 ML UDC MT SCH; +Clindamycin 900mg in D5W 50ML 50 ML IV SCH; +DEPO-TESTO200 MG/1 M IM; +DILTIAZEM 24HR300 M3 PO; +Lactated Ringer's 1,000 ML IV SCH; +OZEMPIC1 MG/0.72 SC; +OxyCODONE HCL 10 MG TABCR PO SCH; +Ropivacaine 0.5% HCl/Pf 123.125 MG,EPINEPHrine HCL 0.25 MG,Ketorolac Tromethamine 15 MG... INFIL SCH; +TRAZ50 PO; +Tranexamic Acid 1,000 MG in NS 100 ML IV SCH; -UBID100 PO
--- NOTE | 2024-11-01 07:27 | NUR ---
CONFIRMED WITH DR QUINTANA OVER PHONE THAT PATIENT OK TO PROCEED WITH SURGERY DESPITE ADMITTING TO EATING A "CLUB" CRACKER AT [address] CID NOTIFIED WELL. PATIENT STATES NPO SINCE 1999 EXCEPT FOR CRACKER AT 02O0 AND PRESCRIBED MEDICATIONS AT 0530 WITH SIP OF WATER[address] CID CONFIRMED WITH THIS RN ANCEF OK DESPITE HIVES REACTION TO PENICILLIN CHILD.
[2024-11-01] MEDS ORDERED: GABA300 PO (07:37)
[2024-11-01] MEDS ORDERED: propofoL 60 ML IV ONE ×2 (07:39→09:09)
[2024-11-01] MEDS ORDERED: Midazolam HCl 1MG / ML 2ML Vial ONE (07:39)
[2024-11-01] MEDS ORDERED: TraZODone HCl 50 MG Tab PO PRN (08:20)
[2024-11-01] MEDS ORDERED: Pregabalin 75 MG Cap PO PRN (08:20)
[2024-11-01] MEDS ORDERED: Melatonin 3 MG Tab PO PRN (08:25)
[2024-11-01] MEDS ORDERED: Benzonatate 100 MG Cap PO PRN (08:25)
[2024-11-01] MEDS ORDERED: Amiodarone HCl 200 MG Tab PO SCH (09:00)
[2024-11-01] MEDS ORDERED: AmLODIPine Besylate 5 MG Tab PO SCH (09:00)
[2024-11-01] MEDS ORDERED: Gabapentin 300 MG Cap PO SCH (09:00)
[2024-11-01] MEDS ORDERED: Losartan Potassium 50 MG Tab PO SCH (09:00)
[2024-11-01] MEDS ORDERED: ePHEDrine Sulfate 50 MG/ML 1ML Injection ONE (09:29)
[2024-11-01] MEDS ORDERED: propofoL 40 ML IV ONE (09:42)
[2024-11-01] MEDS ORDERED: Metoclopramide HCl 5MG / ML 2ML Vial IV PRN (10:45)
[2024-11-01] MEDS ORDERED: DiphenhydrAMINE HCL 25 MG Cap PO PRN (10:50)
[2024-11-01] MEDS ORDERED: Ondansetron HCl 2 MG / ML 2ML Vial IV PRN (10:50)
[2024-11-01] MEDS ORDERED: OxyCODONE HCL 5 MG TAB PO PRN ×2 (10:50→10:55)
[2024-11-01] MEDS ORDERED: Lactated Ringer's 1,000 ML IV SCH (10:50)
[2024-11-01] MEDS ORDERED: Magnesium Hydroxide Conc 10 ML UDC PO PRN (10:50)
[2024-11-01] MEDS ORDERED: HYDROmorphone HCl/Pf 1MG SYR IV PRN (10:55)
[2024-11-01] MEDS ORDERED: Promethazine HCl 25 MG Tab PO PRN (10:55)
[2024-11-01] MEDS ORDERED: FLU VACC TS2024-25(6MOS UP)/PF 45 MCG/0.5 ML SYRINGE IM SCH (10:55)
[2024-11-01] MEDS ORDERED: Bisacodyl 10 MG Supp PR PRN (11:00)
[2024-11-01] MEDS ORDERED: Ketorolac Tromethamine 15mg Vial IV SCH (12:00)
[2024-11-01] MEDS ORDERED: Acetaminophen 500 MG Tab PO SCH (16:00)
[2024-11-01] MEDS ORDERED: CeFAZolin Sodium 2,000 MG in NS 100 ML IV SCH (16:00)
[2024-11-01] MEDS ORDERED: Carvedilol 6.25 MG Tab PO SCH (17:00)
--- NOTE | 2024-11-01 19:03 | NUR ---
SHIFT SUMMARY HAS DONE WELL POST OP. INITIALLY WAS PAINFUL AFTER SPINAL WORE OFF, BUT PAIN IS MANAGABLE NOW. EATING, DRINKING, & VOIDING. SURG SITE WNL.
[2024-11-01] MEDS ORDERED: Docusate Sodium 100 MG Cap PO SCH (21:00)
[2024-11-01] MEDS ORDERED: Diltiazem HCl 300 MG Cap.CD PO SCH (21:00)
[2024-11-01] MEDS ORDERED: Atorvastatin 40 MG Tab PO SCH (21:00)
[2024-11-01] MEDS ORDERED: Apixaban 5 MG Tab PO SCH (21:00)
[2024-11-02 05:11] LABS: BASOPHILS ABSOLUTE AUTO 0.02 K/mm3 (0.00-0.23); BASOPHILS PERCENT AUTO 0 % (0-2); EOSINOPHILS ABSOLUTE AUTO 0.14 K/mm3 (0.00-0.68); EOSINOPHILS PERCENT AUTO 2 % (0-6); Hematocrit 39.3 % (37.0-53.0); Hemoglobin 13.3 g/dL (13.5-17.5); IMMATURE GRAN ABSOLUTE AUTO 0.03 K/mm3 (0.00-0.10); IMMATURE GRAN PERCENT AUTO 0 % (0-1); LYMPHOCYTES ABSOLUTE AUTO 0.62 K/mm3 (0.84-5.20); LYMPHOCYTES PERCENT AUTO 8 % (21-46); MONOCYTES ABSOLUTE AUTO 0.47 K/mm3 (0.16-1.47); MONOCYTES PERCENT AUTO 6 % (4-13); Mean Corpuscular HGB 32.8 pg (26.0-34.0); Mean Corpuscular HGB Conc 33.8 g/dL (31.5-36.5); Mean Corpuscular Volume 97 fL (80-100); Mean Platelet Volume 9.6 fL (9.1-12.4); NEUTROPHILS PERCENT AUTO 83 % (41-73); Platelet Count 198 K/mm3 (150-400); RDW Coefficient Variation 13.2 % (11.7-14.2); RDW Standard Deviation 47.2 fL (35.1-46.3); Red Blood Cell Count 4.05 M/mm3 (4.30-5.90); White Blood Cell Count 7.38 K/mm3 (4.00-11.30)
[2024-11-02 05:28] VITALS: BP 154/72
[2024-11-02 05:41] LABS: Bun/Creatinine Ratio 16.7 (12.0-20.0); Calcium, Blood 8.5 mg/dL (8.5-10.1); Creatinine, Blood 1.2 mg/dL (0.60-1.20); Magnesium, Blood 1.8 mg/dL (1.6-2.4); Potassium, Blood 4.6 mmol/L (3.5-5.5)
--- NOTE | 2024-11-02 05:56 | NUR ---
SHIFT SUMMARY POD 1 L TKA. NO ACUTE CHANGES OVERNIGHT. VSS. TOLERATING ORALS, DENIES N/V. VOIDING. AMBULATES USING FWW c GB & SBA. AQUACEL C/D/I. PT REPORTS PAIN TOLERABLE, MEDICATED PER EMAR, POLAR PACK IN USE. PT DRESSED & RESTING IN CHAIR c LEs ELEVATED. CALL LIGHT IN REACH, WILL REPORT TO DAY RN.
[2024-11-02] MEDS ORDERED: Omeprazole 20 MG CapCR PO SCH (06:00)
[2024-11-02 07:16] VITALS: BP 129/62
[2024-11-02] MEDS ORDERED: Apixaban 5 MG Tab PO SCH (09:00)
[2024-11-02] MEDS ORDERED: Modafinil 200 MG Tab PO SCH (09:00)
[2024-11-02] MEDS ORDERED: buPROPion HCL 150 MG TAB.SR.12H PO SCH (09:00)
[2024-11-02] MEDS ORDERED: DOCU100 PO (09:21)
[2024-11-02] MEDS ORDERED: OXYC5 PO (09:21)
--- NOTE | 2024-11-02 14:05 | NUR ---
DISCHARGE PT HAS WORKED w/ THERAPY. PAIN WELL CONTROLLED. EATING, DRINKING, & VOIDING WELL. TIFFANIE & ROBIN MAYO SENT w/ PT. ESCORTED OUT VIA W/C.
== END 2024-11-02 13:57 | disposition home or self-care (01) ==
LOC: ORSCMMR 07:04 → SURS 11:28 → ORSCMMR 11-02 13:57
PROVIDERS: Orthopaedic Surgery
PROC: 0SRD0JA Replacement of Left Knee Joint with Synthetic Substitute, Uncemented, Open Approach (ICD-10-PCS; principal; 2024-11-01 08:30)
DX: M17.12 Unilateral primary osteoarthritis, left knee (principal); I10 Essential (primary) hypertension; E78.5 Hyperlipidemia, unspecified; G47.33 Obstructive sleep apnea (adult) (pediatric); K21.9 Gastro-esophageal reflux disease without esophagitis; I48.91 Unspecified atrial fibrillation; Z79.01 Long term (current) use of anticoagulants; Z79.02 Long term (current) use of antithrombotics/antiplatelets; Z87.891 Personal history of nicotine dependence; J44.9 Chronic obstructive pulmonary disease, unspecified
CPT/HCPCS: 36415; 73560-LT; 80048; 83735; 85025; 97110; 97116; 97161; 97530; A9270; C1713; C1776; C1887; J0171; J0690; J0735; J1885; J2250; J2704; J2795; J7120

== ENCOUNTER 2025-08-24 11:18 | Day surgery (SDC) | payer OTHER ==
[2025-08-24] VITALS (13 sets, daily range): BP systolic 91–163; BP diastolic 58–91
[~2025-08-24] VITALS: Ht 195.6 cm; Wt 90.6 kg
[~2025-08-24 11:18] MED LIST changes: -Acetaminophen 500 MG Tab PO SCH; -CeFAZolin Sodium 2,000 MG VIAL ONE; -CeFAZolin Sodium 2,000 MG in NS 100 ML IV SCH; -Chlorhexidine Mouth Care 15 ML UDC MT SCH; -Clindamycin 900mg in D5W 50ML 50 ML IV SCH; +DOCU100 PO; -Lactated Ringer's 1,000 ML IV SCH; +OXYC5 PO; -OxyCODONE HCL 10 MG TABCR PO SCH; -Ropivacaine 0.5% HCl/Pf 123.125 MG,EPINEPHrine HCL 0.25 MG,Ketorolac Tromethamine 15 MG... INFIL SCH; -Tranexamic Acid 1,000 MG in NS 100 ML IV SCH
--- NOTE | 2025-08-24 12:00 | NUR ---
Ambulatory in Day Surgery History, Chart, Medications and Allergies reviewed before start of procedure. Pre-Op teaching done. Pt verbalizes understanding. Patient States Post-Procedure ride home has been arranged.
--- NOTE | 2025-08-24 13:06 | NUR ---
08/24/25 Hayley Araiza CONFIRMED AND REVIEWED H&P, MEDCICATIONS, ALLERGIES, MEDICAL HISTORY, RESPIRATORY HISTORY, VITAL SIGNS, 3-LEAD EKG, CONSENTS, AND PHYSICIAN ORDERS. PATIENT CONFIRMS NPO STATUS AND AGREES WITH SCHEDULED PROCEDURE. MONITOR INTACT WITH CONTINUOUS PULSE OXIMETRY, CAPNOGRAPHY, 3-LEAD EKG, INTERMITTENT BP. SUPPLEMENTAL O2 TO BE TITRATED THROUGHOUT PROCEDURE TO MAINTAIN O2 SATURATION ABOVE 90%. PATIENT DETERMINED TO BE ASA APPROPRIATE FOR PROPOFOL SEDATION PRIOR TO START OF PROCEDURE BY . MALLAMPATI CLASS 2 AIRWAY: COMPLETE VISUALIZATION OF THE UVULA.
--- NOTE | 2025-08-24 13:40 | NUR ---
Discharge instructions reviewed with patient. Patient verbalizes understanding. Copy given to patient to take home. Patient States Post-Procedure ride home has been arranged. Discharged via wheelchair to private car for ride home.
== END 2025-08-24 13:49 | disposition home or self-care (01) ==
LOC: ORSCMMR 11:18 → ORD 12:15 → ORSCMMR 12:30 → ORD 12:30 → ORSCMMR 13:49
PROVIDERS: Internal Medicine Gastroenterology
PROC: 0DBN8ZX Excision of Sigmoid Colon, Via Natural or Artificial Opening Endoscopic, Diagnostic (ICD-10-PCS; principal; 2025-08-24 12:30)
PROC: 0DBK8ZX Excision of Ascending Colon, Via Natural or Artificial Opening Endoscopic, Diagnostic (ICD-10-PCS; principal; 2025-08-24 12:30)
PROC: 0DBM8ZX Excision of Descending Colon, Via Natural or Artificial Opening Endoscopic, Diagnostic (ICD-10-PCS; principal; 2025-08-24 12:30)
DX: Z12.11 Encounter for screening for malignant neoplasm of colon (principal); D12.2 Benign neoplasm of ascending colon; D12.5 Benign neoplasm of sigmoid colon; D12.4 Benign neoplasm of descending colon; K63.5 Polyp of colon; Z86.0101 Personal history of adenomatous and serrated colon polyps; J44.9 Chronic obstructive pulmonary disease, unspecified; E78.00 Pure hypercholesterolemia, unspecified; I48.0 Paroxysmal atrial fibrillation; I10 Essential (primary) hypertension; Z68.31 Body mass index [BMI] 31.0-31.9, adult; G47.30 Sleep apnea, unspecified; Z79.01 Long term (current) use of anticoagulants; Z79.899 Other long term (current) drug therapy; Z87.891 Personal history of nicotine dependence
CPT/HCPCS: 88305; J2704; J7120